=== PATIENT | male | born 1970 | race American Indian/Alaskan Native ===

== ENCOUNTER 2019-12-16 13:54 | Observation (INO) | payer OTHER ==
--- NOTE | 2019-12-16 14:26 | Emergency Department Report ---
ED Chest Pain HPI - General Chief Complaint: Chest Pain Stated Complaint: CHEST PAIN PUI?: No Time Seen by Provider: 12/16/19 14:10 Source: patient, EMS ( EMS documentation not available at time of chart dictation ), RN notes reviewed Mode of arrival: Stretcher Limitations: No Limitations - History of Present Illness Initial Comments: The patient was evaluated in the emergency department for symptoms described in the history of present illness. He/she was evaluated in the context of the global COVID-19 pandemic, which necessitated consideration that the patient might be at risk for infection with the virus that causes COVID-19. Institutional protocols and algorithms that pertain to the evaluation of patients at risk for COVID-19 are in a state of rapid change based on information released by regulatory bodies including the CDC and federal and state organizations. These policies and algorithms were followed during the patient's care in the emergency department. Please note that these policies, procedures and recommendations changed on a rapid basis. Patient is a 49-year-old gentleman. He is not known to myself previously. He reports a history of ischemic heart disease, at least 1-2 stents, history of bernadette zaira/crack abuse, and stroke/TIA. He is visiting from [place] in [place]. He reports a cardiac catheterization at [facility] ( [address] hospital within the past year, he is not quite sure what this catheterization demonstrated He presents to the ER today with a complaint of nontraumatic left-sided chest pain, which started while he was playing basketball earlier on today, and this pain moved down his right upper extremity. There is no vomiting or diaphoresis. There is intermittent shortness of breath. He was given aspirin prior to my arrival. He is not sure if he takes Plavix. He reports sporadic trips back and forth between the [facility] in the state of [place] over the past few weeks and months. Of note, he also endorses that he "relapsed" on crack cocaine. He is interested in performing/participating in detox. He is not homicidal or suicidal. He denies headache, neck pain, abdominal pain, hematemesis, bright red blood per rectum, focal extremity weakness and or numbness, homicidality and suicidality. He has no recent erectile dysfunction medication utilization MD Complaint: chest pain -: Gradual, Sudden, hour(s) Pain Location: left chest Pain Radiation: RUE Severity: moderate Severity scale (0 -10): 5 Quality: aching Consistency: intermittent Improves With: nothing, eating Context: recent travel Treatments Prior to Arrival: aspirin Aspirin use within the Past 7 Days: (1) Yes - Related Data Home Medications Medication Instructions Recorded Confirmed Last Taken Gabapentin 30 mg PO QDAY PRN 12/17/19 12/17/19 Unknown Plavix 25 mg PO QDAY 12/17/19 12/17/19 12/15/19 Remeron 30mg TAB 30 mg PO QDAY 12/17/19 12/17/19 12/15/19 SEROquel 50 mg PO HS 12/17/19 12/17/19 12/15/19 Vistaril 50 mg PO HS PRN 12/17/19 12/17/19 12/14/19 amLODIPine 20 mg PO QDAY 12/17/19 12/17/19 12/15/19 cloNIDine 0.1 mg PO PRN PRN 12/17/19 12/17/19 Unknown Allergies Allergy/AdvReac Type Severity Reaction Status Date / Time ibuprofen Allergy Hives Verified 12/16/19 14:02 lisinopril Allergy Angioedema Verified 12/16/19 14:02 Heart Score - HEART Score History: Moderately suspicious EKG: Non-specific Age: 45-65 Risk factors: > 3 risk factors or hx of atherosclerotic disease Troponin: < normal limit HEART Score: 5 - Critical Actions Critical Actions: 4-6 pts:12-16.6% risk of adverse cardiac event. Should be admitted ED Review of Systems ROS: Stated complaint: CHEST PAIN Other details as noted in HPI Constitutional: denies: fever, malaise Eyes: denies: eye discharge ENT: denies: congestion Respiratory: denies: cough Cardiovascular: chest pain Gastrointestinal: denies: abdominal pain, nausea, vomiting, hematemesis, melena Genitourinary: denies: dysuria Musculoskeletal: myalgia Skin: denies: lesions Neurological: denies: weakness Psychiatric: denies: homicidal thoughts, suicidal thoughts ED Past Medical Hx - Past Medical History Previous Medical History?: Yes Hx Hypertension: Yes Hx CVA: Yes (TIA) Hx Heart Attack/AMI: Yes (x2 10/2018, 06/2019) Hx Psychiatric Treatment: Yes (ETOH, cocaine abuse, THC) - Surgical History Past Surgical History?: Yes Hx Appendectomy: Yes Additional Surgical History: maria esther knee sx - Social History Smoking Status: Current Every Day Smoker Substance Use Type: Alcohol, Marijuana - Medications Home Medications: Home Medications Medication Instructions Recorded Confirmed Last Taken Type Gabapentin 30 mg PO QDAY PRN 12/17/19 12/17/19 Unknown History Plavix 25 mg PO QDAY 12/17/19 12/17/19 12/15/19 History Remeron 30mg TAB 30 mg PO QDAY 12/17/19 12/17/19 12/15/19 History SEROquel 50 mg PO HS 12/17/19 12/17/19 12/15/19 History Vistaril 50 mg PO HS PRN 12/17/19 12/17/19 12/14/19 History amLODIPine 20 mg PO QDAY 12/17/19 12/17/19 12/15/19 History cloNIDine 0.1 mg PO PRN PRN 12/17/19 12/17/19 Unknown History ED Physical Exam - General Limitations: No Limitations General appearance: alert, in no apparent distress, obese - Head Head exam: Present: atraumatic, normocephalic - Eye Eye exam: Present: normal appearance, EOMI. Absent: nystagmus - ENT ENT exam: Present: normal exam, normal orophraynx, mucous membranes moist, normal external ear exam - Neck Neck exam: Present: normal inspection, full ROM. Absent: tenderness, menin gismus - Respiratory Respiratory exam: Present: normal lung sounds bilaterally. Absent: respiratory distress, wheezes, rales, rhonchi, stridor, decreased breath sounds - Cardiovascular Cardiovascular Exam: Present: normal rhythm, tachycardia, normal heart sounds. Absent: bradycardia, irregular rhythm, systolic murmur, diastolic murmur, rubs, gallop - GI/Abdominal GI/Abdominal exam: Present: soft, normal bowel sounds. Absent: distended, tenderness, guarding, rebound, rigid, pulsatile mass - Rectal Rectal exam: Present: deferred - Extremities Exam Extremities exam: Present: normal inspection, full ROM, other (2+ pulses noted in the bilateral upper and lower extremities. There is no palpable cord. negative Homans sign. Muscular compartments are soft. The pelvis is stable.). Absent: pedal edema, calf tenderness - Back Exam Back exam: Present: normal inspection, full ROM. Absent: tenderness, CVA tenderness (R), CVA tenderness (L), paraspinal tenderness, vertebral tenderness - Neurological Exam Neurological exam: Present: alert, oriented X3, normal gait, other (No facial droop. Tongue midline. Extraocular movements intact bilaterally. Facial sensation intact to light touch in V1, V2, V3 distribution bilaterally. 5 and a 5 strength in 4 extremities. Sensation intact to light touch in 4 extremities. ). Absent: motor sensory deficit - Psychiatric Psychiatric exam: Absent: homicidal ideation, suicidal ideation - Skin Skin exam: Present: warm, dry, intact, normal color. Absent: rash ED Course Vital Signs 12/16/19 12/16/19 12/16/19 14:00 14:02 14:08 Temperature 98.4 F Pulse Rate 111 H 106 H Respiratory 10 L 18 18 Rate Blood Pressure 135/86 Blood Pressure [Left] O2 Sat by Pulse 98 98 98 Oximetry 12/16/19 12/16/19 12/16/19 14:15 14:31 15:01 Temperature Pulse Rate 106 H 103 H 99 H Respiratory 12 18 16 Rate Blood Pressure 135/86 121/74 122/87 Blood Pressure [Left] O2 Sat by Pulse 97 95 Oximetry 12/16/19 12/16/19 12/16/19 15:30 15:50 16:01 Temperature Pulse Rate 95 H 96 H 101 H Respiratory 14 11 L Rate Blood Pressure 129/84 129/84 129/84 Blood Pressure [Left] O2 Sat by Pulse 97 Oximetry 12/16/19 12/16/19 12/16/19 16:31 16:37 17:01 Temperature Pulse Rate 90 91 H Respiratory 13 17 Rate Blood Pressure 106/55 Blood Pressure 106/55 [Left] O2 Sat by Pulse 94 96 Oximetry 12/16/19 12/16/19 12/16/19 17:41 18:00 18:31 Temperature Pulse Rate Respiratory Rate Blood Pressure 106/55 118/60 134/88 Blood Pressure [Left] O2 Sat by Pulse 96 97 96 Oximetry 12/16/19 12/16/19 12/16/19 18:41 18:51 19:01 Temperature Pulse Rate Respiratory Rate Blood Pressure 134/88 134/88 120/51 Blood Pressure [Left] O2 Sat by Pulse 97 89 94 Oximetry 12/16/19 12/16/19 12/16/19 19:11 19:21 19:31 Temperature Pulse Rate Respiratory Rate Blood Pressure 120/51 120/51 121/46 Blood Pressure [Left] O2 Sat by Pulse 95 97 94 Oximetry 12/16/19 12/16/19 19:41 19:50 Temperature Pulse Rate Respiratory Rate Blood Pressure 121/46 120/51 Blood Pressure [Left] O2 Sat by Pulse 94 92 Oximetry - Reevaluation(s) Reevaluation #1: 12/16/19 16:35 Differential diagnosis, including but not limited to: Stable angina, unstable angina, acute coronary syndrome, pulmonary embolism, crack cocaine abuse/dependence Assessment and plan: 49-year-old gentleman who was tachycardic, status post plane trip from another part of the country/[place], with multiple cardiovascular risk factors, low risk by Wells criteria for pulmonary embolism but with elevated d-dimer, moderate risk for major adverse cardiac event as per heart score. Admission is recommended for accelerated cardiac recertification. He states he is basically pain-free at this time. Troponin negative, EKG nonspecific without prior for comparison. Given recent travel history, tachycardia, d-dimer sent, elevated, therefore, CT scan of the chest will be obtained to exclude pulmonary embolism. Aortic dissection is unlikely based off of equal pulses in the upper and lower extremities, and unremarkable mediastinal silhouette on x-ray of the chest. He is not homicidal or suicidal, he is clinically sober at this time, he does not meet criteria for 1013 hold or involuntary hold. Patient amenable to hospitalization. Hospital physician is paged to arrange admission. CT scan of the chest is pending at this time. Reevaluation #2: 12/16/19 16:56 Dr Napoleon Sequeira to admit Reevaluation #3: 12/16/19 19:19 CT scan of the chest is negative for acute findings TEX score - Tex Score Age > 65: (0) No Aspirin use within the Past 7 Days: (1) Yes 3 or more CAD Risk Factors: (1) Yes 2 or more Angina events in past 24 hrs: (0) No Known CAD with more than 50% Stenosis: (0) No Elevated Cardiac Markers: (0) No ST Deviation Greater than 0.5mm: (0) No TEX Score: 2 ED Medical Decision Making - Lab Data Result diagrams: 12/16/19 14:23 12/17/19 05:37 Vital Signs 12/16/19 12/16/19 12/16/19 14:00 14:02 14:08 Temperature 98.4 F Pulse Rate 111 H 106 H Respiratory 10 L 18 18 Rate Blood Pressure 135/86 O2 Sat by Pulse 98 98 98 Oximetry 12/16/19 12/16/19 12/16/19 14:15 14:31 15:01 Temperature Pulse Rate 106 H 103 H 99 H Respiratory 12 18 16 Rate Blood Pressure 135/86 121/74 122/87 O2 Sat by Pulse 97 95 Oximetry 12/16/19 12/16/19 12/16/19 15:30 15:50 16:01 Temperature Pulse Rate 95 H 96 H 101 H Respiratory 14 11 L Rate Blood Pressure 129/84 129/84 129/84 O2 Sat by Pulse 97 Oximetry 12/16/19 16:31 Temperature Pulse Rate 90 Respiratory 13 Rate Blood Pressure O2 Sat by Pulse 94 Oximetry Lab Results 12/16/19 12/16/19 12/16/19 Range/Units 14:23 14:23 14:23 WBC 13.2 H (4.5-11.0) K/mm3 RBC 4.37 (3.65-5.03) M/mm3 Hgb 14.2 (11.8-15.2) gm/dl Hct 41.5 (35.5-45.6) % MCV 95 H (84-94) fl MCH 32 (28-32) pg MCHC 34 (32-34) % RDW 14.4 (13.2-15.2) % Plt Count 356 (140-440) K/mm3 PT 12.1 L (12.2-14.9) Sec. INR 0.89 (0.87-1.13) APTT 27.8 (24.2-36.6) Sec. D-Dimer (0-234) ng/mlDDU Sodium 141 (137-145) mmol/L Potassium 3.0 L (3.6-5.0) mmol/L Chloride 100.2 (98-107) mmol/L Carbon Dioxide 24 (22-30) mmol/L Anion Gap 20 mmol/L BUN 14 (9-20) mg/dL Creatinine 1.2 (0.8-1.3) mg/dL Estimated GFR > 60 ml/min BUN/Creatinine Ratio 12 % Glucose 185 H (75-100) mg/dL Calcium 9.8 (8.4-10.2) mg/dL Magnesium (1.7-2.3) mg/dL Total Creatine Kinase (55-170) units/L Troponin T < 0.010 (0.00-0.029) ng/mL Salicylates (2.8-20.0) mg/dL Acetaminophen (10.0-30.0) ug/mL Plasma/Serum Alcohol (0-0.07) % 12/16/19 12/16/19 12/16/19 Range/Units 14:56 14:56 14:56 WBC (4.5-11.0) K/mm3 RBC (3.65-5.03) M/mm3 Hgb (11.8-15.2) gm/dl Hct (35.5-45.6) % MCV (84-94) fl MCH (28-32) pg MCHC (32-34) % RDW (13.2-15.2) % Plt Count (140-440) K/mm3 PT (12.2-14.9) Sec. INR (0.87-1.13) APTT (24.2-36.6) Sec. D-Dimer 272.76 H (0-234) ng/mlDDU Sodium (137-145) mmol/L Potassium (3.6-5.0) mmol/L Chloride (98-107) mmol/L Carbon Dioxide (22-30) mmol/L Anion Gap mmol/L BUN (9-20) mg/dL Creatinine (0.8-1.3) mg/dL Estimated GFR ml/min BUN/Creatinine Ratio % Glucose (75-100) mg/dL Calcium (8.4-10.2) mg/dL Magnesium 2.10 (1.7-2.3) mg/dL Total Creatine Kinase 411 H (55-170) units/L Troponin T (0.00-0.029) ng/mL Salicylates < 0.3 L (2.8-20.0) mg/dL Acetaminophen (10.0-30.0) ug/mL Plasma/Serum Alcohol (0-0.07) % 12/16/19 12/16/19 Range/Units 14:56 14:56 WBC (4.5-11.0) K/mm3 RBC (3.65-5.03) M/mm3 Hgb (11.8-15.2) gm/dl Hct (35.5-45.6) % MCV (84-94) fl MCH (28-32) pg MCHC (32-34) % RDW (13.2-15.2) % Plt Count (140-440) K/mm3 PT (12.2-14.9) Sec. INR (0.87-1.13) APTT (24.2-36.6) Sec. D-Dimer (0-234) ng/mlDDU Sodium (137-145) mmol/L Potassium (3.6-5.0) mmol/L Chloride (98-107) mmol/L Carbon Dioxide (22-30) mmol/L Anion Gap mmol/L BUN (9-20) mg/dL Creatinine (0.8-1.3) mg/dL Estimated GFR ml/min BUN/Creatinine Ratio % Glucose (75-100) mg/dL Calcium (8.4-10.2) mg/dL Magnesium (1.7-2.3) mg/dL Total Creatine Kinase (55-170) units/L Troponin T (0.00-0.029) ng/mL Salicylates (2.8-20.0) mg/dL Acetaminophen 5.0 L (10.0-30.0) ug/mL Plasma/Serum Alcohol < 0.01 (0-0.07) % - EKG Data -: EKG Interpreted by Id EKG shows normal: sinus rhythm Rate: tachycardia - EKG Data When compared to previous EKG there are: previous EKG unavailable 12/16/19 16:38 Sinus rhythm, tachycardia, 105 bpm, normal axis, the QTC is prolonged, left ventricular hypertrophy, T wave abnormalities, abnormal EKG, the EKG is not a STEMI. There is no prior for comparison - Radiology Data Radiology results: pending, report reviewed, image reviewed Critical care attestation.: If time is entered above; I have spent that time in minutes in the direct care of this critically ill patient, excluding procedure time. ED Disposition Clinical Impression: Acute chest pain, History of crack cocaine use, Hypokalemia Disposition: OP ADMIT IP TO THIS HOSP Is pt being admited?: Yes Does the pt Need Aspirin: No Condition: Good
[2019-12-16 14:38] LABS: Hematocrit 41.5 % (35.5-45.6); Hemoglobin 14.2 gm/dl (11.8-15.2); Mean Corpuscular HGB Conc 34 % (32-34); Mean Corpuscular Volume 95 fl (84-94); Platelet Count 356 K/mm3 (140-440); Red Blood Count 4.37 M/mm3 (3.65-5.03); Red Cell Distribution Width 14.4 % (13.2-15.2)
[2019-12-16] MEDS ORDERED: SODIUM CHLORIDE 0.9% 500 ML 500 ML IV ONE (14:49)
[2019-12-16 14:50] LABS: INR 0.89 (0.87-1.13)
[2019-12-16 14:51] LABS: Partial Thromboplastin Time 27.8 Sec. (24.2-36.6)
[2019-12-16 14:58] LABS: BUN/Creatinine Ratio 12; Blood Urea Nitrogen 14 mg/dL (9-20); Calcium 9.8 mg/dL (8.4-10.2); Hemolysis Index 9
--- NOTE | 2019-12-16 15:16 | XRay Report ---
CHEST 1 VIEW 1420 INDICATION / CLINICAL INFORMATION: Chest Pain COMPARISON: None available. FINDINGS: SUPPORT DEVICES: None HEART / MEDIASTINUM: No significant abnormality. LUNGS / PLEURA: No significant pulmonary or pleural abnormality. No pneumothorax. ADDITIONAL FINDINGS: No significant additional findings. IMPRESSION: No significant acute abnormality Signer Name: Timmy Greene MD Signed: 12/16/2019 3:12 PM Workstation Name: [id number]
[2019-12-16] MEDS: NITROGLYCERIN 0.4 MG TAB SUBL SL PRN ×2 (15:50→16:31)
[2019-12-16] MEDS ORDERED: POTASSIUM CHLORIDE 20 MEQ 20 MEQ/100 ML BAG IV ONE (15:54)
[2019-12-16] MEDS ORDERED: POTASSIUM CHLORIDE ER 20 MEQ TAB PO ONE (15:54)
[2019-12-16 16:37] LABS: Basophils % (Manual) 0 % (0.0-1.8); Total Cells Counted 100
[2019-12-16] MEDS: POTASSIUM CHLORIDE 10 MEQ 10 MEQ/100 ML BAG IV SCH ×2 (16:45→19:04)
[2019-12-16 16:48] LABS: RBC Morphology Normal
[2019-12-16 16:49] LABS: Platelet Estimate Consistent w Auto
[2019-12-16] MEDS ORDERED: SODIUM CHLORIDE 0.9% 1000 ML 1,000 ML ONE (18:27)
[2019-12-16] MEDS ORDERED: SODIUM CHLORIDE 0.9% 1000 ML 1,000 ML IV ONE (18:29)
--- NOTE | 2019-12-16 19:06 | Cat Scan Report ---
CTA CHEST WITH IV CONTRAST INDICATION: Chest pain, tachycardia, elevated d-dimer, recent history of travel CONTRAST: 100 cc Omnipaque 350 IV COMPARISON: Portable chest x-ray today Three-plane MIP reconstructions were produced. All CT scans at this location are performed using CT d ose reduction for ALARA by means of automated exposure control. FINDINGS: No significant axillary or chest wall lesions are seen. Small nodes in both axillae have pr ominent fatty fredrick. No mediastinal or hilar masses are seen. A few small nodes are noted but not path ologically enlarged in the mediastinum. Visualized portions of the upper abdomen show moderate fatty infiltration of the liver. No pleural effusions are seen. Lung devlin are clear. Aorta shows no aneurysmal dilatation or evidence of dissection. Good opacification of the pulmonary arterial system was achieved. I do not see convincing evidence of pulmonary thromboembolism. IMPRESSION: No acute abnormalities are seen Signer Name: Timmy Greene MD Signed: 12/16/2019 7:02 PM Workstation Name: [id number]
[2019-12-16] MEDS ORDERED: HYDROmorphone 1 MG/1 ML INJ IV PRN (21:46)
[2019-12-16] MEDS ORDERED: ACETAMINOPHEN 325 MG TAB PO PRN (21:46)
[2019-12-16] MEDS ORDERED: METOCLOPRAMIDE 10 MG/2 ML INJ IV PRN (21:46)
[2019-12-16] MEDS ORDERED: ONDANSETRON 4 MG/2 ML INJ IV PRN (21:46)
--- NOTE | 2019-12-16 21:46 | History and Physical Report ---
History of Present Illness Date of examination: 12/16/19 Date of admission: 12/16/19 17:35 Chief complaint: Chest pain since morning History of present illness: 49-year-old -[place] male with history of coronary artery disease and 1- 2 stents comes in for left-sided chest pain which is intermittent in nature, no morning. Chest pain is retrosternal 5 very 10 on a scale of 1-10. No exacerbating or relieving factors. No shortness of breath. No diaphoresis. No radiation to the left upper extremity or neck. Patient has history of crack cocaine use. Patient is visiting from [place]. - HEART Score History: Moderately suspicious EKG: Non-specific Age: 45-65 Risk factors: > 3 risk factors or hx of atherosclerotic disease Troponin: < normal limit HEART Score: 5 - Critical Actions Critical Actions: 4-6 pts:12-16.6% risk of adverse cardiac event. Should be admitted - Past Medical History Previous Medical History?: Yes Hx Hypertension: Yes Hx CVA: Yes (TIA) Hx Heart Attack/AMI: Yes (x2 10/2018, 06/2019) Hx Psychiatric Treatment: Yes (ETOH, cocaine abuse, THC) - Surgical History Past Surgical History?: Yes Hx Appendectomy: Yes Additional Surgical History: maria esther knee sx - Social History Smoking Status: Current Every Day Smoker Substance Use Type: Alcohol, Marijuana Family history Htn Review of Systems ROS: Stated complaint: CHEST PAIN Other details as noted in HPI Constitutional: denies: fever, malaise Eyes: denies: eye discharge ENT: denies: congestion Respiratory: denies: cough Cardiovascular: chest pain Gastrointestinal: denies: abdominal pain, nausea, vomiting, hematemesis, melena Genitourinary: denies: dysuria Musculoskeletal: myalgia Skin: denies: lesions Neurological: denies: weakness Psychiatric: denies: homicidal thoughts, suicidal thoughts Medications and Allergies Allergies Allergy/AdvReac Type Severity Reaction Status Date / Time ibuprofen Allergy Hives Verified 12/16/19 14:02 lisinopril Allergy Angioedema Verified 12/16/19 14:02 Active Meds: Active Medications Sodium Chloride (Nacl 0.9% 1000 Ml) 1,000 mls @ 75 mls/hr IV ONCE ONE Stop: 12/17/19 07:48 Last Admin: 12/16/19 18:30 Dose: 75 mls/hr Documented by: Nitroglycerin (Nitrostat) 0.4 mg SL .Q5MIN PRN PRN Reason: Chest Pain Last Admin: 12/16/19 16:31 Dose: 0.4 mg Documented by: Exam - Constitutional Vitals: Temp Pulse Resp BP Pulse Ox 98.4 F 91 H 17 134/88 96 12/16/19 14:02 12/16/19 17:01 12/16/19 17:01 12/16/19 18:31 12/16/19 18:31 General appearance: Present: no acute distress, well-nourished - EENT Eyes: Present: PERRL ENT: hearing intact, clear oral mucosa - Neck Neck: Present: supple, normal ROM - Respiratory Respiratory effort: normal Respiratory: bilateral: CTA - Cardiovascular Heart rate: 78 Rhythm: regular Heart Sounds: Present: S1 & S2. Absent: rub, click - Extremities Extremities: no ischemia, pulses intact, pulses symmetrical, No edema Peripheral Pulses: within normal limits - Abdominal General gastrointestinal: Present: soft, non-tender, non-distended, normal bowel sounds Male genitourinary: Present: normal - Integumentary Integumentary: Present: clear, warm, dry - Musculoskeletal Musculoskeletal: gait normal, strength equal bilaterally - Psychiatric Psychiatric: appropriate mood/affect, intact judgment & insight - Neurologic Neurologic: CNII-XII intact, moves all extremities HEART Score - HEART Score EKG: Non-specific Age: 45-65 Risk factors: > 3 risk factors or hx of atherosclerotic disease Troponin: Troponin T < 0.010 ng/mL (0.00-0.029) 12/16/19 19:51 Troponin: < normal limit - Critical Actions Critical Actions: 4-6 pts:12-16.6% risk of adverse cardiac event. Should be admitted Results - Labs CBC & Chem 7: 12/16/19 14:23 12/17/19 05:37 Labs: Laboratory Last Values WBC 13.2 K/mm3 (4.5-11.0) H 12/16/19 14:23 RBC 4.37 M/mm3 (3.65-5.03) 12/16/19 14:23 Hgb 14.2 gm/dl (11.8-15.2) 12/16/19 14:23 Hct 41.5 % (35.5-45.6) 12/16/19 14:23 MCV 95 fl (84-94) H 12/16/19 14:23 MCH 32 pg (28-32) 12/16/19 14:23 MCHC 34 % (32-34) 12/16/19 14:23 RDW 14.4 % (13.2-15.2) 12/16/19 14:23 Plt Count 356 K/mm3 (140-440) 12/16/19 14:23 Add Manual Diff Complete 12/16/19 14:23 Total Counted 100 12/16/19 14:23 Seg Neuts % (Manual) 74.0 % (40.0-70.0) H 12/16/19 14:23 Band Neutrophils % 0 % 12/16/19 14:23 Lymphocytes % (Manual) 15.0 % (13.4-35.0) 12/16/19 14:23 Reactive Lymphs % (Man) 0 % 12/16/19 14:23 Monocytes % (Manual) 4.0 % (0.0-7.3) 12/16/19 14:23 Eosinophils % (Manual) 1.0 % (0.0-4.3) 12/16/19 14:23 Basophils % (Manual) 0 % (0.0-1.8) 12/16/19 14:23 Metamyelocytes % 6.0 % 12/16/19 14:23 Myelocytes % 0 % 12/16/19 14:23 Promyelocytes % 0 % 12/16/19 14:23 Blast Cells % 0 % 12/16/19 14:23 Nucleated RBC % Not Reportable 12/16/19 14:23 Seg Neutrophils # Man 9.8 K/mm3 (1.8-7.7) H 12/16/19 14:23 Band Neutrophils # 0.0 K/mm3 12/16/19 14:23 Lymphocytes # (Manual) 2.0 K/mm3 (1.2-5.4) 12/16/19 14:23 Abs React Lymphs (Man) 0.0 K/mm3 12/16/19 14:23 Monocytes # (Manual) 0.5 K/mm3 (0.0-0.8) 12/16/19 14:23 Eosinophils # (Manual) 0.1 K/mm3 (0.0-0.4) 12/16/19 14:23 Basophils # (Manual) 0.0 K/mm3 (0.0-0.1) 12/16/19 14:23 Metamyelocytes # 0.8 K/mm3 12/16/19 14:23 Myelocytes # 0.0 K/mm3 12/16/19 14:23 Promyelocytes # 0.0 K/mm3 12/16/19 14:23 Blast Cells # 0.0 K/mm3 12/16/19 14:23 WBC Morphology Not Reportable 12/16/19 14:23 Hypersegmented Neuts Not Reportable 12/16/19 14:23 Hyposegmented Neuts Not Reportable 12/16/19 14:23 Hypogranular Neuts Not Reportable 12/16/19 14:23 Smudge Cells Not Reportable 12/16/19 14:23 Toxic Granulation Not Reportable 12/16/19 14:23 Toxic Vacuolation Not Reportable 12/16/19 14:23 Dohle Bodies Not Reportable 12/16/19 14:23 Pelger-Huet Anomaly Not Reportable 12/16/19 14:23 Driss Rods Not Reportable 12/16/19 14:23 Platelet Estimate Consistent w auto 12/16/19 14:23 Clumped Platelets Not Reportable 12/16/19 14:23 Plt Clumps, EDTA Not Reportable 12/16/19 14:23 Large Platelets Not Reportable 12/16/19 14:23 Giant Platelets Not Reportable 12/16/19 14:23 Platelet Satelliting Not Reportable 12/16/19 14:23 Plt Morphology Comment Not Reportable 12/16/19 14:23 RBC Morphology Normal 12/16/19 14:23 Dimorphic RBCs Not Reportable 12/16/19 14:23 Polychromasia Not Reportable 12/16/19 14:23 Hypochromasia Not Reportable 12/16/19 14:23 Poikilocytosis Not Reportable 12/16/19 14:23 Anisocytosis Not Reportable 12/16/19 14:23 Microcytosis Not Reportable 12/16/19 14:23 Macrocytosis Not Reportable 12/16/19 14:23 Spherocytes Not Reportable 12/16/19 14:23 Pappenheimer Bodies Not Reportable 12/16/19 14:23 Sickle Cells Not Reportable 12/16/19 14:23 Target Cells Not Reportable 12/16/19 14:23 Tear Drop Cells Not Reportable 12/16/19 14:23 Ovalocytes Not Reportable 12/16/19 14:23 Helmet Cells Not Reportable 12/16/19 14:23 [place] Bodies Not Reportable 12/16/19 14:23 [place] Rings Not Reportable 12/16/19 14:23 [place] Cells Not Reportable 12/16/19 14:23 Bite Cells Not Reportable 12/16/19 14:23 Crenated Cell Not Reportable 12/16/19 14:23 Elliptocytes Not Reportable 12/16/19 14:23 Acanthocytes (Spur) Not Reportable 12/16/19 14:23 Rouleaux Not Reportable 12/16/19 14:23 Hemoglobin C Crystals Not Reportable 12/16/19 14:23 Schistocytes Not Reportable 12/16/19 14:23 Malaria parasites Not Reportable 12/16/19 14:23 Tyrell Bodies Not Reportable 12/16/19 14:23 Hem Pathologist Commnt No 12/16/19 14:23 PT 12.1 Sec. (12.2-14.9) L 12/16/19 14:23 INR 0.89 (0.87-1.13) 12/16/19 14:23 APTT 27.8 Sec. (24.2-36.6) 12/16/19 14:23 D-Dimer 272.76 ng/mlDDU (0-234) H 12/16/19 14:56 Sodium 141 mmol/L (137-145) 12/16/19 14:23 Potassium 3.0 mmol/L (3.6-5.0) L 12/16/19 14:23 Chloride 100.2 mmol/L (98-107) 12/16/19 14:23 Carbon Dioxide 24 mmol/L (22-30) 12/16/19 14:23 Anion Gap 20 mmol/L 12/16/19 14:23 BUN 14 mg/dL (9-20) 12/16/19 14:23 Creatinine 1.2 mg/dL (0.8-1.3) 12/16/19 14:23 Estimated GFR > 60 ml/min 12/16/19 14:23 BUN/Creatinine Ratio 12 % 12/16/19 14:23 Glucose 185 mg/dL (75-100) H 12/16/19 14:23 Calcium 9.8 mg/dL (8.4-10.2) 12/16/19 14:23 Magnesium 2.10 mg/dL (1.7-2.3) 12/16/19 14:56 Total Creatine Kinase 411 units/L (55-170) H 12/16/19 14:56 Troponin T < 0.010 ng/mL (0.00-0.029) 12/16/19 19:51 Salicylates < 0.3 mg/dL (2.8-20.0) L 12/16/19 14:56 Acetaminophen 5.0 ug/mL (10.0-30.0) L 12/16/19 14:56 Plasma/Serum Alcohol < 0.01 % (0-0.07) 12/16/19 14:56 Short CBC 12/16/19 Range/Units 14:23 WBC 13.2 H (4.5-11.0) K/mm3 Hgb 14.2 (11.8-15.2) gm/dl Hct 41.5 (35.5-45.6) % Plt Count 356 (140-440) K/mm3 BMP 12/16/19 12/17/19 14:23 05:37 Sodium 141 138 Potassium 3.0 L 3.0 L Chloride 100.2 99.3 Carbon Dioxide 24 25 BUN 14 10 Creatinine 1.2 0.8 Glucose 185 H 131 H Calcium 9.8 8.4 Cardiac Enzymes 12/16/19 12/16/19 12/16/19 Range/Units 14:23 14:56 16:54 Total Creatine Kinase 411 H (55-170) units/L Troponin T < 0.010 < 0.010 (0.00-0.029) ng/mL 12/16/19 12/16/19 12/17/19 Range/Units 19:51 23:34 05:37 Total Creatine Kinase (55-170) units/L Troponin T < 0.010 < 0.010 < 0.010 (0.00-0.029) ng/mL Liver Function 12/17/19 Range/Units 05:37 Total Bilirubin 0.50 (0.1-1.2) mg/dL AST 41 H (5-40) units/L ALT 75 H (7-56) units/L Alkaline Phosphatase 110 (35-129) units/L Albumin 3.9 (3.9-5) g/dL - Imaging and Cardiology EKG: report reviewed (Sinus rhythm, no acute ST-T wave changes) Chest x-ray: report reviewed Guardado/IV: IV Catheter Type [Right Hand] INT / [place] Assessment and Plan Advance Directives: Yes (Full code) VTE prophylaxis?: Chemical Plan of care discussed with patient/family: Yes - Patient Problems (1) Acute coronary syndrome Current Visit: Yes Status: Acute Plan to address problem: Serial troponins and Lexiscan in the morning Differential diagnosis of costochondritis and GERD (2) Hypertension Current Visit: Yes Status: Chronic Qualifiers: Hypertension type: essential hypertension Qualified Code(s): I10 - Essential (primary) hypertension Plan to address problem: Continue antihypertensives (3) Hypokalemia Current Visit: Yes Status: Acute Plan to address problem: Supplemented (4) Coronary artery disease Current Visit: Yes Status: Chronic Qualifiers: Coronary Disease-Associated Artery/Lesion type: [place] artery [place] vs. transplanted heart: [place] heart Plan to address problem: Patient on aspirin and Plavix (5) History of crack cocaine use Current Visit: Yes Status: Chronic Plan to address problem: Patient counseled IV Ativan if necessary (6) DVT prophylaxis Current Visit: Yes Status: Acute Plan to address problem: Heparin and GI prophylaxis
[2019-12-16] MEDS: FAMOTIDINE 20 MG TAB PO SCH (22:39)
[2019-12-16] MEDS: oxyCODONE /ACETAMINOPHEN 5-325MG TAB PO PRN (22:39)
[2019-12-16] MEDS: HEPARIN 5,000 UNIT/1 ML VIAL SUB-Q SCH (22:40)
[2019-12-17 06:55] LABS: Alanine Aminotransferase 75 units/L (7-56); Albumin 3.9 g/dL (3.9-5); BUN/Creatinine Ratio 13; Blood Urea Nitrogen 10 mg/dL (9-20); Calcium 8.4 mg/dL (8.4-10.2); Hemolysis Index 6
[2019-12-17] MEDS ORDERED: REGADENOSON 0.4 MG/5 ML INJ IV ONE ×2 (08:24→08:48)
[2019-12-17] MEDS: FAMOTIDINE 20 MG TAB PO SCH ×2 (10:29→22:04)
[2019-12-17] MEDS: HEPARIN 5,000 UNIT/1 ML VIAL SUB-Q SCH ×2 (10:30→22:04)
[2019-12-17] MEDS ORDERED: POTASSIUM CHLORIDE ER 20 MEQ TAB PO ONE ×2 (13:44→17:00)
[2019-12-17] MEDS: oxyCODONE /ACETAMINOPHEN 5-325MG TAB PO PRN ×2 (14:49→22:05)
--- NOTE | 2019-12-17 15:55 | Progress Note ---
<MUSHTAQCLIF SterlingYoana - Last Filed: 12/17/19 16:09> Assessment and Plan - Patient Problems (1) Acute chest pain Current Visit: Yes Status: Acute Plan to address problem: Serial troponins have been less than 0.01 12/16 Stress test completed which was negative for ischemia Possible discharge in the a.m. per cardiology 12/08 patient does not complain of any chest pain PRN morphine, nitroglycerin EKG PRN (2) Hypokalemia Current Visit: Yes Status: Acute Plan to address problem: Presented with potassium of 3, repleted 12/16 potassium 3, repleted Trend BMP Replete as needed (3) Coronary artery disease Current Visit: Yes Status: Chronic Qualifiers: Coronary Disease-Associated Artery/Lesion type: [place] artery [place] vs. transplanted heart: [place] heart Plan to address problem: Patient has been noncompliant with his medication because he has no insurance RN contacted to update medication list who states the patient cannot remember his medications Asked for family to be contacted for medication list (4) History of crack cocaine use Current Visit: Yes Status: Chronic Plan to address problem: Cessation counseling provided Ativan if necessary Unclear when patient last used Per RN he was at a rehab center prior to admission (5) Hypertension Current Visit: Yes Status: Chronic Qualifiers: Hypertension type: essential hypertension Qualified Code(s): I10 - Essential (primary) hypertension Plan to address problem: Patient states he has a history of hypertension No antihypertensive noted in home medication regimen, patient has been out of his job since earlier this year so most likely noncompliant Started on low-dose CCB, titrate as needed Blood pressure monitoring per protocol (6) DVT prophylaxis Current Visit: Yes Status: Acute Plan to address problem: Subcu Heparin and GI prophylaxis SCDs to bilateral lower extremities while in bed History Interval history: 49-year-old -[place] male with CAD s/p TX x2 (10/2017, 06/2019) s/p stent x1 or 2, CVA with residual stutter crack cocaine use, EtOH use current everyday smoker and current marijuana use presents to the emergency department on 12/15 for intermittent retrosternal left-sided chest pain 5/10 with no associated shortness of breath, diaphoresis, radiation. States the pain started when he was playing tag football. This morning at the time of my examination he says he has slight chest pain. He had a stress test this morning. Also he was hypokalemic this morning with a potassium of 3.0 which was repleted. His stress test was negative however cardiology would like to keep him overnight to observe. Hospitalist Physical - Constitutional Vitals: Temp Pulse Resp BP Pulse Ox 98.0 F 92 H 25 H 153/83 98 12/17/19 04:35 12/17/19 12:00 12/17/19 10:00 12/17/19 09:01 12/17/19 10:00 General appearance: Present: no acute distress, well-nourished - EENT Eyes: Present: PERRL, EOM intact ENT: hearing intact, clear oral mucosa - Neck Neck: Present: supple, normal ROM - Respiratory Respiratory effort: normal Respiratory: bilateral: CTA - Cardiovascular Rhythm: regular Heart Sounds: Present: S1 & S2. Absent: systolic murmur, diastolic murmur - Extremities Extremities: no ischemia, pulses intact, pulses symmetrical, No edema, normal temperature, normal color, Full ROM Peripheral Pulses: within normal limits - Abdominal General gastrointestinal: soft, non-tender, non-distended, normal bowel sounds - Integumentary Integumentary: Present: clear, warm, dry - Psychiatric Psychiatric: appropriate mood/affect, cooperative - Neurologic Neurologic: CNII-XII intact, no focal deficits, moves all extremities - Allied Health Allied health notes reviewed: nursing HEART Score - HEART Score EKG: Non-specific Age: 45-65 Risk factors: > 3 risk factors or hx of atherosclerotic disease Troponin: Troponin T < 0.010 ng/mL (0.00-0.029) 12/17/19 05:37 Troponin: < normal limit - Critical Actions Critical Actions: 4-6 pts:12-16.6% risk of adverse cardiac event. Should be admitted Results - Labs CBC & Chem 7: 12/16/19 14:23 12/17/19 05:37 Labs: Laboratory Last Values WBC 13.2 K/mm3 (4.5-11.0) H 12/16/19 14:23 RBC 4.37 M/mm3 (3.65-5.03) 12/16/19 14:23 Hgb 14.2 gm/dl (11.8-15.2) 12/16/19 14:23 Hct 41.5 % (35.5-45.6) 12/16/19 14:23 MCV 95 fl (84-94) H 12/16/19 14:23 MCH 32 pg (28-32) 12/16/19 14:23 MCHC 34 % (32-34) 12/16/19 14:23 RDW 14.4 % (13.2-15.2) 12/16/19 14:23 Plt Count 356 K/mm3 (140-440) 12/16/19 14:23 Add Manual Diff Complete 12/16/19 14:23 Total Counted 100 12/16/19 14:23 Seg Neuts % (Manual) 74.0 % (40.0-70.0) H 12/16/19 14:23 Band Neutrophils % 0 % 12/16/19 14:23 Lymphocytes % (Manual) 15.0 % (13.4-35.0) 12/16/19 14:23 Reactive Lymphs % (Man) 0 % 12/16/19 14:23 Monocytes % (Manual) 4.0 % (0.0-7.3) 12/16/19 14:23 Eosinophils % (Manual) 1.0 % (0.0-4.3) 12/16/19 14:23 Basophils % (Manual) 0 % (0.0-1.8) 12/16/19 14:23 Metamyelocytes % 6.0 % 12/16/19 14:23 Myelocytes % 0 % 12/16/19 14:23 Promyelocytes % 0 % 12/16/19 14:23 Blast Cells % 0 % 12/16/19 14:23 Nucleated RBC % Not Reportable 12/16/19 14:23 Seg Neutrophils # Man 9.8 K/mm3 (1.8-7.7) H 12/16/19 14:23 Band Neutrophils # 0.0 K/mm3 12/16/19 14:23 Lymphocytes # (Manual) 2.0 K/mm3 (1.2-5.4) 12/16/19 14:23 Abs React Lymphs (Man) 0.0 K/mm3 12/16/19 14:23 Monocytes # (Manual) 0.5 K/mm3 (0.0-0.8) 12/16/19 14:23 Eosinophils # (Manual) 0.1 K/mm3 (0.0-0.4) 12/16/19 14:23 Basophils # (Manual) 0.0 K/mm3 (0.0-0.1) 12/16/19 14:23 Metamyelocytes # 0.8 K/mm3 12/16/19 14:23 Myelocytes # 0.0 K/mm3 12/16/19 14:23 Promyelocytes # 0.0 K/mm3 12/16/19 14:23 Blast Cells # 0.0 K/mm3 12/16/19 14:23 WBC Morphology Not Reportable 12/16/19 14:23 Hypersegmented Neuts Not Reportable 12/16/19 14:23 Hyposegmented Neuts Not Reportable 12/16/19 14:23 Hypogranular Neuts Not Reportable 12/16/19 14:23 Smudge Cells Not Reportable 12/16/19 14:23 Toxic Granulation Not Reportable 12/16/19 14:23 Toxic Vacuolation Not Reportable 12/16/19 14:23 Dohle Bodies Not Reportable 12/16/19 14:23 Pelger-Huet Anomaly Not Reportable 12/16/19 14:23 Driss Rods Not Reportable 12/16/19 14:23 Platelet Estimate Consistent w auto 12/16/19 14:23 Clumped Platelets Not Reportable 12/16/19 14:23 Plt Clumps, EDTA Not Reportable 12/16/19 14:23 Large Platelets Not Reportable 12/16/19 14:23 Giant Platelets Not Reportable 12/16/19 14:23 Platelet Satelliting Not Reportable 12/16/19 14:23 Plt Morphology Comment Not Reportable 12/16/19 14:23 RBC Morphology Normal 12/16/19 14:23 Dimorphic RBCs Not Reportable 12/16/19 14:23 Polychromasia Not Reportable 12/16/19 14:23 Hypochromasia Not Reportable 12/16/19 14:23 Poikilocytosis Not Reportable 12/16/19 14:23 Anisocytosis Not Reportable 12/16/19 14:23 Microcytosis Not Reportable 12/16/19 14:23 Macrocytosis Not Reportable 12/16/19 14:23 Spherocytes Not Reportable 12/16/19 14:23 Pappenheimer Bodies Not Reportable 12/16/19 14:23 Sickle Cells Not Reportable 12/16/19 14:23 Target Cells Not Reportable 12/16/19 14:23 Tear Drop Cells Not Reportable 12/16/19 14:23 Ovalocytes Not Reportable 12/16/19 14:23 Helmet Cells Not Reportable 12/16/19 14:23 [place] Bodies Not Reportable 12/16/19 14:23 [place] Rings Not Reportable 12/16/19 14:23 [place] Cells Not Reportable 12/16/19 14:23 Bite Cells Not Reportable 12/16/19 14:23 Crenated Cell Not Reportable 12/16/19 14:23 Elliptocytes Not Reportable 12/16/19 14:23 Acanthocytes (Spur) Not Reportable 12/16/19 14:23 Rouleaux Not Reportable 12/16/19 14:23 Hemoglobin C Crystals Not Reportable 12/16/19 14:23 Schistocytes Not Reportable 12/16/19 14:23 Malaria parasites Not Reportable 12/16/19 14:23 Tyrell Bodies Not Reportable 12/16/19 14:23 Hem Pathologist Commnt No 12/16/19 14:23 PT 12.1 Sec. (12.2-14.9) L 12/16/19 14:23 INR 0.89 (0.87-1.13) 12/16/19 14:23 APTT 27.8 Sec. (24.2-36.6) 12/16/19 14:23 D-Dimer 272.76 ng/mlDDU (0-234) H 12/16/19 14:56 Sodium 138 mmol/L (137-145) 12/17/19 05:37 Potassium 3.0 mmol/L (3.6-5.0) L 12/17/19 05:37 Chloride 99.3 mmol/L (98-107) 12/17/19 05:37 Carbon Dioxide 25 mmol/L (22-30) 12/17/19 05:37 Anion Gap 17 mmol/L 12/17/19 05:37 BUN 10 mg/dL (9-20) 12/17/19 05:37 Creatinine 0.8 mg/dL (0.8-1.3) 12/17/19 05:37 Estimated GFR > 60 ml/min 12/17/19 05:37 BUN/Creatinine Ratio 13 % 12/17/19 05:37 Glucose 131 mg/dL (75-100) H 12/17/19 05:37 Hemoglobin A1c 6.0 % (4-6) 12/17/19 05:37 Calcium 8.4 mg/dL (8.4-10.2) 12/17/19 05:37 Magnesium 2.10 mg/dL (1.7-2.3) 12/16/19 14:56 Total Bilirubin 0.50 mg/dL (0.1-1.2) 12/17/19 05:37 AST 41 units/L (5-40) H 12/17/19 05:37 ALT 75 units/L (7-56) H 12/17/19 05:37 Alkaline Phosphatase 110 units/L (35-129) 12/17/19 05:37 Total Creatine Kinase 411 units/L (55-170) H 12/16/19 14:56 Troponin T < 0.010 ng/mL (0.00-0.029) 12/17/19 05:37 Total Protein 7.3 g/dL (6.3-8.2) 12/17/19 05:37 Albumin 3.9 g/dL (3.9-5) 12/17/19 05:37 Albumin/Globulin Ratio 1.1 % 12/17/19 05:37 Nasal Screen MRSA (PCR) Negative (Negative) 12/17/19 00:46 Salicylates < 0.3 mg/dL (2.8-20.0) L 12/16/19 14:56 Acetaminophen 5.0 ug/mL (10.0-30.0) L 12/16/19 14:56 Plasma/Serum Alcohol < 0.01 % (0-0.07) 12/16/19 14:56 Guardado/IV: Voiding Method Urinal IV Catheter Type [Right Hand] INT / Saline Lock Active Medications - Current Medications Current Medications: Generic Name Dose Route Start Last Admin Trade Name Freq PRN Reason Stop Dose Admin Acetaminophen 650 mg 12/16/19 21:46 12/17/19 10:34 Tylenol PO 650 mg Q4H PRN Administration Pain MILD(1-3)/Fever >100.5/FOX Famotidine 20 mg 12/16/19 22:00 12/17/19 10:29 Pepcid PO 20 mg BID [place] Administration Heparin Sodium (Porcine) 5,000 unit 12/16/19 22:00 12/17/19 10:30 Heparin SUB-Q 5,000 unit Q12HR [place] Administration Hydromorphone HCl 0.5 mg 12/16/19 21:46 Dilaudid IV Q3H PRN Pain , Severe (7-10) Metoclopramide HCl 10 mg 12/16/19 21:46 Reglan IV Q6H PRN Nausea And Vomiting Nitroglycerin 0.4 mg 12/16/19 14:49 12/16/19 16:31 Nitrostat SL 0.4 mg .Q5MIN PRN Administration Chest Pain Ondansetron HCl 4 mg 12/16/19 21:46 Zofran IV Q8H PRN Nausea And Vomiting Oxycodone/Acetaminophen 1 tab 12/16/19 21:46 12/17/19 14:49 Percocet 5/325 PO 1 tab Q6H PRN Administration Pain, Moderate (4-6) Potassium Chloride 40 meq 12/17/19 17:00 K-Dur PO 12/17/19 17:01 ONCE ONE Sodium Chloride 10 ml 12/16/19 22:00 12/17/19 10:30 Sodium Chloride Flush Syringe 10 Ml IV 10 ml BID [place] Administration Sodium Chloride 10 ml 12/16/19 21:46 Sodium Chloride Flush Syringe 10 Ml IV PRN PRN LINE FLUSH <SEVERINO BUTTERFIELD - Last Filed: 12/17/19 17:59> Assessment and Plan Disposition Plan: Agree with plan and disposition. Patient is still having pa in. Hospitalist Physical - Constitutional Vitals: Temp Pulse Resp BP Pulse Ox 98.5 F 92 H 18 125/79 99 12/17/19 16:12 12/17/19 17:02 12/17/19 16:12 12/17/19 17:02 12/17/19 16:46 HEART Score - HEART Score Troponin: Troponin T < 0.010 ng/mL (0.00-0.029) 12/17/19 05:37 Results - Labs CBC & Chem 7: 12/16/19 14:23 12/17/19 05:37 Labs: Laboratory Last Values WBC 13.2 K/mm3 (4.5-11.0) H 12/16/19 14:23 RBC 4.37 M/mm3 (3.65-5.03) 12/16/19 14:23 Hgb 14.2 gm/dl (11.8-15.2) 12/16/19 14:23 Hct 41.5 % (35.5-45.6) 12/16/19 14:23 MCV 95 fl (84-94) H 12/16/19 14:23 MCH 32 pg (28-32) 12/16/19 14:23 MCHC 34 % (32-34) 12/16/19 14:23 RDW 14.4 % (13.2-15.2) 12/16/19 14:23 Plt Count 356 K/mm3 (140-440) 12/16/19 14:23 Add Manual Diff Complete 12/16/19 14:23 Total Counted 100 12/16/19 14:23 Seg Neuts % (Manual) 74.0 % (40.0-70.0) H 12/16/19 14:23 Band Neutrophils % 0 % 12/16/19 14:23 Lymphocytes % (Manual) 15.0 % (13.4-35.0) 12/16/19 14:23 Reactive Lymphs % (Man) 0 % 12/16/19 14:23 Monocytes % (Manual) 4.0 % (0.0-7.3) 12/16/19 14:23 Eosinophils % (Manual) 1.0 % (0.0-4.3) 12/16/19 14:23 Basophils % (Manual) 0 % (0.0-1.8) 12/16/19 14:23 Metamyelocytes % 6.0 % 12/16/19 14:23 Myelocytes % 0 % 12/16/19 14:23 Promyelocytes % 0 % 12/16/19 14:23 Blast Cells % 0 % 12/16/19 14:23 Nucleated RBC % Not Reportable 12/16/19 14:23 Seg Neutrophils # Man 9.8 K/mm3 (1.8-7.7) H 12/16/19 14:23 Band Neutrophils # 0.0 K/mm3 12/16/19 14:23 Lymphocytes # (Manual) 2.0 K/mm3 (1.2-5.4) 12/16/19 14:23 Abs React Lymphs (Man) 0.0 K/mm3 12/16/19 14:23 Monocytes # (Manual) 0.5 K/mm3 (0.0-0.8) 12/16/19 14:23 Eosinophils # (Manual) 0.1 K/mm3 (0.0-0.4) 12/16/19 14:23 Basophils # (Manual) 0.0 K/mm3 (0.0-0.1) 12/16/19 14:23 Metamyelocytes # 0.8 K/mm3 12/16/19 14:23 Myelocytes # 0.0 K/mm3 12/16/19 14:23 Promyelocytes # 0.0 K/mm3 12/16/19 14:23 Blast Cells # 0.0 K/mm3 12/16/19 14:23 WBC Morphology Not Reportable 12/16/19 14:23 Hypersegmented Neuts Not Reportable 12/16/19 14:23 Hyposegmented Neuts Not Reportable 12/16/19 14:23 Hypogranular Neuts Not Reportable 12/16/19 14:23 Smudge Cells Not Reportable 12/16/19 14:23 Toxic Granulation Not Reportable 12/16/19 14:23 Toxic Vacuolation Not Reportable 12/16/19 14:23 Dohle Bodies Not Reportable 12/16/19 14:23 Pelger-Huet Anomaly Not Reportable 12/16/19 14:23 Driss Rods Not Reportable 12/16/19 14:23 Platelet Estimate Consistent w auto 12/16/19 14:23 Clumped Platelets Not Reportable 12/16/19 14:23 Plt Clumps, EDTA Not Reportable 12/16/19 14:23 Large Platelets Not Reportable 12/16/19 14:23 Giant Platelets Not Reportable 12/16/19 14:23 Platelet Satelliting Not Reportable 12/16/19 14:23 Plt Morphology Comment Not Reportable 12/16/19 14:23 RBC Morphology Normal 12/16/19 14:23 Dimorphic RBCs Not Reportable 12/16/19 14:23 Polychromasia Not Reportable 12/16/19 14:23 Hypochromasia Not Reportable 12/16/19 14:23 Poikilocytosis Not Reportable 12/16/19 14:23 Anisocytosis Not Reportable 12/16/19 14:23 Microcytosis Not Reportable 12/16/19 14:23 Macrocytosis Not Reportable 12/16/19 14:23 Spherocytes Not Reportable 12/16/19 14:23 Pappenheimer Bodies Not Reportable 12/16/19 14:23 Sickle Cells Not Reportable 12/16/19 14:23 Target Cells Not Reportable 12/16/19 14:23 Tear Drop Cells Not Reportable 12/16/19 14:23 Ovalocytes Not Reportable 12/16/19 14:23 Helmet Cells Not Reportable 12/16/19 14:23 [place] Bodies Not Reportable 12/16/19 14:23 [place] Rings Not Reportable 12/16/19 14:23 [place] Cells Not Reportable 12/16/19 14:23 Bite Cells Not Reportable 12/16/19 14:23 Crenated Cell Not Reportable 12/16/19 14:23 Elliptocytes Not Reportable 12/16/19 14:23 Acanthocytes (Spur) Not Reportable 12/16/19 14:23 Rouleaux Not Reportable 12/16/19 14:23 Hemoglobin C Crystals Not Reportable 12/16/19 14:23 Schistocytes Not Reportable 12/16/19 14:23 Malaria parasites Not Reportable 12/16/19 14:23 Tyrell Bodies Not Reportable 12/16/19 14:23 Hem Pathologist Commnt No 12/16/19 14:23 PT 12.1 Sec. (12.2-14.9) L 12/16/19 14:23 INR 0.89 (0.87-1.13) 12/16/19 14:23 APTT 27.8 Sec. (24.2-36.6) 12/16/19 14:23 D-Dimer 272.76 ng/mlDDU (0-234) H 12/16/19 14:56 Sodium 138 mmol/L (137-145) 12/17/19 05:37 Potassium 3.0 mmol/L (3.6-5.0) L 12/17/19 05:37 Chloride 99.3 mmol/L (98-107) 12/17/19 05:37 Carbon Dioxide 25 mmol/L (22-30) 12/17/19 05:37 Anion Gap 17 mmol/L 12/17/19 05:37 BUN 10 mg/dL (9-20) 12/17/19 05:37 Creatinine 0.8 mg/dL (0.8-1.3) 12/17/19 05:37 Estimated GFR > 60 ml/min 12/17/19 05:37 BUN/Creatinine Ratio 13 % 12/17/19 05:37 Glucose 131 mg/dL (75-100) H 12/17/19 05:37 Hemoglobin A1c 6.0 % (4-6) 12/17/19 05:37 Calcium 8.4 mg/dL (8.4-10.2) 12/17/19 05:37 Magnesium 2.10 mg/dL (1.7-2.3) 12/16/19 14:56 Total Bilirubin 0.50 mg/dL (0.1-1.2) 12/17/19 05:37 AST 41 units/L (5-40) H 12/17/19 05:37 ALT 75 units/L (7-56) H 12/17/19 05:37 Alkaline Phosphatase 110 units/L (35-129) 12/17/19 05:37 Total Creatine Kinase 411 units/L (55-170) H 12/16/19 14:56 Troponin T < 0.010 ng/mL (0.00-0.029) 12/17/19 05:37 Total Protein 7.3 g/dL (6.3-8.2) 12/17/19 05:37 Albumin 3.9 g/dL (3.9-5) 12/17/19 05:37 Albumin/Globulin Ratio 1.1 % 12/17/19 05:37 Nasal Screen MRSA (PCR) Negative (Negative) 12/17/19 00:46 Salicylates < 0.3 mg/dL (2.8-20.0) L 12/16/19 14:56 Acetaminophen 5.0 ug/mL (10.0-30.0) L 12/16/19 14:56 Plasma/Serum Alcohol < 0.01 % (0-0.07) 12/16/19 14:56 Guardado/IV: Voiding Method Urinal IV Catheter Type [Right Hand] INT / Saline Lock Active Medications - Current Medications Current Medications: Generic Name Dose Route Start Last Admin Trade Name Freq PRN Reason Stop Dose Admin Acetaminophen 650 mg 12/16/19 21:46 12/17/19 10:34 Tylenol PO 650 mg Q4H PRN Administration Pain MILD(1-3)/Fever >100.5/FOX Amlodipine Besylate 5 mg 12/17/19 18:00 12/17/19 17:02 Amlodipine PO 5 mg QDAY [place] Administration Famotidine 20 mg 12/16/19 22:00 12/17/19 10:29 Pepcid PO 20 mg BID [place] Administration Heparin Sodium (Porcine) 5,000 unit 12/16/19 22:00 12/17/19 10:30 Heparin SUB-Q 5,000 unit Q12HR [place] Administration Hydromorphone HCl 0.5 mg 12/16/19 21:46 Dilaudid IV Q3H PRN Pain , Severe (7-10) Metoclopramide HCl 10 mg 12/16/19 21:46 Reglan IV Q6H PRN Nausea And Vomiting Nitroglycerin 0.4 mg 12/16/19 14:49 12/16/19 16:31 Nitrostat SL 0.4 mg .Q5MIN PRN Administration Chest Pain Ondansetron HCl 4 mg 12/16/19 21:46 Zofran IV Q8H PRN Nausea And Vomiting Oxycodone/Acetaminophen 1 tab 12/16/19 21:46 12/17/19 14:49 Percocet 5/325 PO 1 tab Q6H PRN Administration Pain, Moderate (4-6) Sodium Chloride 10 ml 12/16/19 22:00 12/17/19 10:30 Sodium Chloride Flush Syringe 10 Ml IV 10 ml BID [place] Administration Sodium Chloride 10 ml 12/16/19 21:46 Sodium Chloride Flush Syringe 10 Ml IV PRN PRN LINE FLUSH
[2019-12-17] MEDS: amLODIPine 5 MG TAB PO SCH (17:02)
[2019-12-18 09:31] LABS: Hematocrit 42.4 % (35.5-45.6); Hemoglobin 14.8 gm/dl (11.8-15.2); Mean Corpuscular HGB Conc 35 % (32-34); Mean Corpuscular Volume 94 fl (84-94); Platelet Count 352 K/mm3 (140-440); Red Blood Count 4.52 M/mm3 (3.65-5.03); Red Cell Distribution Width 13.8 % (13.2-15.2)
[2019-12-18 09:46] LABS: BUN/Creatinine Ratio 13; Blood Urea Nitrogen 12 mg/dL (9-20); Calcium 9.4 mg/dL (8.4-10.2); Hemolysis Index 6
[2019-12-18] MEDS: FAMOTIDINE 20 MG TAB PO SCH (10:26)
[2019-12-18] MEDS: amLODIPine 5 MG TAB PO SCH (10:27)
[2019-12-18] MEDS: HEPARIN 5,000 UNIT/1 ML VIAL SUB-Q SCH (10:27)
--- NOTE | 2019-12-18 11:27 | Discharge Summary ---
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 Continue at the voluntary Rehab Follow up with: COREEN VARGAS MD [Primary Care Provider] - 7 Days
[2019-12-18 11:51] VITALS: BP 140/85
== END 2019-12-18 12:21 | disposition home or self-care (01) ==
LOC: ED 13:54 → 4A 17:35
PROVIDERS: ADMIT Internal Medicine; ATTEND Internal Medicine
DX: I24.9 Acute ischemic heart disease, unspecified (principal); I10 Essential (primary) hypertension; I25.10 Atherosclerotic heart disease of native coronary artery without angina pectoris; E87.6 Hypokalemia; F14.10 Cocaine abuse, uncomplicated; F17.200 Nicotine dependence, unspecified, uncomplicated; Z87.898 Personal history of other specified conditions; Z90.49 Acquired absence of other specified parts of digestive tract; Z86.73 Personal history of transient ischemic attack (TIA), and cerebral infarction without residual deficits; Z79.899 Other long term (current) drug therapy
CPT/HCPCS: 36415; 71045; 71275; 78452; 80048; 80053; 82550; 83036; 83735; 84484; 85007; 85025; 85027; 85379; 85610; 85730; 93005; 93017; 96361; 96365; 96366; 96372; 99285; A9502; G0378; J1644; J2785; J3480; J7030; J7040; Q9967; 80320; 96374; 96375; 96376; G0480